=== PATIENT | female | born 1955 | race Caucasian/White ===

== ENCOUNTER 2017-09-02 09:23 | Emergency (ER) | payer BC ==
[~2017-09-02] VITALS: Ht 182.9 cm; Wt 127.0 kg
[2017-09-02 09:26] VITALS: BP 144/89
== END 2017-09-02 11:21 | disposition home or self-care (01) ==
LOC: ER 09:24
DX: S52.591A Other fractures of lower end of right radius, initial encounter for closed fracture (principal); E11.9 Type 2 diabetes mellitus without complications; Z98.890 Other specified postprocedural states; Z88.5 Allergy status to narcotic agent; W01.0XXA Fall on same level from slipping, tripping and stumbling without subsequent striking against object, initial encounter; Y93.89 Activity, other specified; Y92.89 Other specified places as the place of occurrence of the external cause; Y99.9 Unspecified external cause status
CPT/HCPCS: 29125; 73090; 99284; A4565; A6449

== ENCOUNTER 2023-09-16 19:51 | Emergency (ER) | payer MEDICARE, BC ==
[~2023-09-16] VITALS: Ht 182.9 cm; Wt 119.5 kg
[2023-09-16] MEDS ORDERED: ACYC-129 PO (21:48)
[2023-09-16] MEDS ORDERED: HYDR-3965 PO (21:48)
[2023-09-16] MEDS: valacyclovir 500mg tablet PO ONE (21:49)
[2023-09-16 21:51] VITALS: BP 134/66; PULSE 66; RESP 16; TEMP 98.4; O2SAT 98
== END 2023-09-16 21:53 | disposition home or self-care (01) ==
LOC: ER 19:52
DX: B02.30 Zoster ocular disease, unspecified (principal); E11.9 Type 2 diabetes mellitus without complications; Z88.8 Allergy status to other drugs, medicaments and biological substances
CPT/HCPCS: 99283